=== PATIENT | female | born 1985 | race Caucasian/White ===

== ENCOUNTER 2017-08-07 10:08 | Emergency (ER) | payer OTHER ==
[~2017-08-07] VITALS: Ht 162.6 cm; Wt 75.0 kg
[2017-08-07 10:16] VITALS: BP 137/95; TEMP 97.8
[2017-08-07 10:44] VITALS: PULSE 65
== END 2017-08-07 10:46 | disposition home or self-care (01) ==
LOC: COL.ER 10:08
DX: F19.239 Other psychoactive substance dependence with withdrawal, unspecified (principal); R42 Dizziness and giddiness; F39 Unspecified mood [affective] disorder; Z91.19 Patient's noncompliance with other medical treatment and regimen